=== PATIENT | female | born 1985 | race Caucasian/White ===

== ENCOUNTER 2016-10-27 21:15 | Emergency (ER) | payer OTHER ==
--- NOTE | 2016-10-27 21:17 | EDPHY ---
H & P HPI/ROS: CHIEF COMPLAINT: Syncope, 17 weeks . HISTORY OF PRESENT ILLNESS: The patient is a 31-year-old female, 17 weeks , brought to the Emergency Department via EMS presenting with syncope. The patient was at an outdoor restaurant that had the heat turned on. She stood up and immediately felt dizzy and nauseous. The patient fell forward and to the right. She was unconscious for about 30 seconds. When she came to she was alert and oriented. This is the patient's first . She has a forehead contusion and complains of mild cervical pain, no limb numbness or weakness. The patient felt fine throughout the day. No vaginal bleeding or fluid. She denies chest pain, shortness of breath, or palpitations. BP during transportation was 118/78. REVIEW OF SYSTEMS: A ten point review of systems was performed and is negative with the exception of the items mentioned in the HPI. Past medical history: 17 weeks . A0. Past surgical history: Denies. Family history: Noncontributory. Social history: . Lives in [place]. General Appearance: Alert. Vital signs reviewed. Blood pressure 132/81 at triage. Head: Abrasion and contusion to the right forehead. Eyes: Pupils equal and round, no conjunctival injection, no discharge. Anicteric. ENT, Mouth: Mucous membranes are moist, no oropharyngeal erythema or edema. Nose: Abrasion to the nasal bridge, no deformity. Neck: No lymphadenopathy, supple. Respiratory: Lungs are clear to auscultation; no wheezes, rales, or rhonchi. Cardiovascular: Regular rate and rhythm; no murmur, rub, or gallop. Gastrointestinal: Abdomen is gravid, soft and nontender, no masses or organomegaly, bowel sounds normal. Skin: Warm and dry, no rashes on exposed skin, normal color. Back: Nontender to palpation over the thoracolumbar spine. No CVAT. Extremities: No lower extremity edema, no calf tenderness or swelling. Neurological: Alert and oriented. Moving all four extremities easily and equally. VERONA. EOMI. Facial expression symmetric. Tongue midline. Strength 5/5 in major motor groups. Sensation intact to light touch over all 4 extremities. Psychiatric: Normal affect. Source: Patient, EMS Constitutional: Initial Vital Signs Temperature (C) 36.7 C 10/27/16 21:15 Heart Rate 64 09/16/17 21:15 Respiratory Rate 18 10/27/16 21:15 Blood Pressure 132/81 H 10/27/16 21:15 O2 Sat (%) 100 10/27/16 21:15 O2 Delivery Mode Room Air Medical Decision Making - Diagnostics EKG Interpretation: The 12 lead EKG was interpreted by myself. See hard copy and/or "tracemaster" electronic copy for interpretation. ED Course/Re-evaluation: Patient that is 17 weeks presents with syncopal episode. She denies chest pain or cardiac symptoms. The patient felt fine today, no vaginal bleeding. Plan to check lab work including BMP and CBC. heart rate 148. EKG is normal sinus rhythm. The patient's lab work is normal. I have performed serial re-examinations of the patient. She continues to feel fine with no complaints. 11:00 p.m.: I called [facility]. Their residential construction instructor provider will call me back. Spoke with a barrel burner from patient's midwifery group. She agrees with work-up that has been done, no other recommendations. Patient has FU with them this coming week. Blood pressure 114/75 at discharge. Patient's syncope is likely a vasovagal episode.I do not think the patient requires further work up at this time. Patient is safe to go home. Danger signs reviewed. She and her agree with this plan. Differential Diagnosis: Syncope including but not limited to vasovagal syncope, arrhythmia, dehydration , and blood loss. - Data Points Laboratory Results: Laboratory Results 10/27/16 21:00 10/27/16 21:00 Departure - Departure Disposition: Home, Routine, Self-Care Clinical Impression: Syncope Qualifiers: Syncope type: vasovagal syncope Qualified Code(s): R55 - Syncope and collapse Condition: Good Instructions: Syncope (ED) Additional Instructions: Drink plenty of fluids. Follow up with your barrel burner in [place] as needed. If you feel as if you might faint again or if you actually DO faint again, you should be re-evaluated immediately. Return to the Emergency Department with new or worsening symptoms. Referrals: Patient,NotPresent [Unknown] - As per Instructions Report Scribed for: Mel Dennison Report Scribed by: Verna Crowe Date of Report: 10/27/16 Time of Report: 21:17 Physician Review and Approval Statement: 10/27/16 21:17 Portions of this note were transcribed by the certified court/medical interpreter. I, Dr. Mel Dennison, personally performed the history, physical exam, and medical decision- making; and confirmed the accuracy of the information in the transcribed note.
--- NOTE | 2016-10-27 21:29 | CPEKG ---
Heart Rate: 53 RR Interval: 1132 P-R Interval: 204 QRSD Interval: 82 QT Interval: 436 QTC Interval: 410 P [place]: 54 QRS [place]: 64 T Wave [place]: 49 EKG Severity - NORMAL ECG - EKG Impression: SINUS RHYTHM Electronically Signed By: Mel Dennison 27-Oct-2016 23:54:44
[2016-10-27 21:41] LABS: % IMMATURE GRANULYOCYTES 0.6 % (0.0-1.1); ABSOLUTE IMMATURE GRANULOCYTES 0.06 10^3/uL (0.00-0.10); ADD DIFF? NO; ADD MORPH? NO; ADD SCAN? NO; ATYPICAL LYMPHOCYTE FLAG 10 (0-99); FRAGMENT RBC FLAG 0 (0-99); HEMOGLOBIN 12.8 g/dL (12.6-16.3); LEFT SHIFT FLG 0 (0-99); LIPEMIA HEMOLYSIS FLAG 80 (0-99); MEAN CELL HEMOGLOBIN 29.9 pg (27.9-34.1); MEAN CELL HEMOGLOBIN CONCENTR. 32.8 g/dL (32.4-36.7); MEAN CELL VOLUME 91.1 fL (81.5-99.8); MEAN PLATELET VOLUME 10.2 fL (8.7-11.7); PLATELET CLUMPS FLAG 10 (0-99); PLATELET COUNT 256 10^3/uL (150-400); RED BLOOD CELL COUNT 4.28 10^6/uL (4.18-5.33); RED CELL DISTRIBUTION WIDTH 12.8 % (11.5-15.2)
[2016-10-27 21:54] LABS: ANION GAP 14 mEq/L (8-16); CALCIUM 9.5 mg/dL (8.5-10.4); CARBON DIOXIDE 19 mEq/l (22-31); CHLORIDE 101 mEq/L (97-110); CREATININE 0.7 mg/dL (0.6-1.0); GLOMERULAR FILTRATION RATE > 60; GLUCOSE 76 mg/dL (70-100); POTASSIUM 3.8 mEq/L (3.5-5.2); SODIUM 134 mEq/L (134-144)
[2016-10-27 21:59] VITALS: O2SAT 100
[2016-10-27 23:30] VITALS: BP 114/75; PULSE 53; RESP 16; TEMP 98.2
== END 2016-10-27 23:29 | disposition home or self-care (01) ==
DX: O99.89 Other specified diseases and conditions complicating pregnancy, childbirth and the puerperium (principal); R55 Syncope and collapse; Z3A.17 17 weeks gestation of pregnancy